=== PATIENT | female | born 1970 | race Caucasian/White ===

== ENCOUNTER → 2017-01-13 | Outpatient (CLI) | payer BC ==
[~2017-01-13] MED LIST: NORCO 5-325 TA1 EACH PO; PROTONIX20 MG PO
[2017-01-13 07:05] LABS: HEMOGLOBIN 14.5 gm/dl (12.3-15.3); RED BLOOD COUNT 4.88 M/UL (4.00-5.10)
[2017-01-13 07:26] LABS: BUN/CREATININE RATIO 10 (0-10)
== END ==
LOC: LAB 06:12
PROVIDERS: Internal Medicine Rheumatology
DX: M13.0 Polyarthritis, unspecified (principal); R79.9 Abnormal finding of blood chemistry, unspecified; M79.2 Neuralgia and neuritis, unspecified
CPT/HCPCS: 36415; 80053; 82607; 85027; 86140; 86200; 86431; 86671

== ENCOUNTER → 2020-10-08 | Outpatient (CLI) | payer BC, OTHER ==
[~2020-10-08] MED LIST changes: +CARAFATE1 GM PO; +MOBIC7.5 MG PO; +OMEPRAZOLE40 MG PO
== END ==
LOC: RAD 06:01
DX: M79.601 Pain in right arm (principal); R20.0 Anesthesia of skin; M48.02 Spinal stenosis, cervical region; M25.78 Osteophyte, vertebrae; M47.812 Spondylosis without myelopathy or radiculopathy, cervical region
CPT/HCPCS: 71046; 72050; 73030

== ENCOUNTER → 2021-02-02 | Outpatient (CLI) | payer BC, OTHER | LOC: RAD 12:03 | DX: R07.81 Pleurodynia (principal); S22.31XA Fracture of one rib, right side, initial encounter for closed fracture | CPT/HCPCS: 71111 ==

== ENCOUNTER → 2021-03-17 | Outpatient (CLI) | payer BC ==
[2021-03-17 06:58] LABS: HEMOGLOBIN 13.8 gm/dl (12.3-15.3); RED BLOOD COUNT 4.71 M/UL (4.00-5.10); WHITE BLOOD COUNT 7.3 K/UL (4.5-11.0)
[2021-03-17 07:20] LABS: BUN/CREATININE RATIO 15 (0-10)
[2021-03-18 08:20] LABS: VITAMIN D, 25-HYDROXY 25.6 ng/mL (30.0-100.0)
[2021-03-18 10:21] LABS: MICROALB/CREAT RATIO <9 (0-29)
== END ==
LOC: LAB 06:04
PROVIDERS: Nurse Practitioner Family
DX: Z00.00 Encounter for general adult medical examination without abnormal findings (principal); Z13.1 Encounter for screening for diabetes mellitus; R30.0 Dysuria; R73.9 Hyperglycemia, unspecified; J44.9 Chronic obstructive pulmonary disease, unspecified; R74.8 Abnormal levels of other serum enzymes; R53.83 Other fatigue; Z13.220 Encounter for screening for lipoid disorders; E53.8 Deficiency of other specified B group vitamins; R10.13 Epigastric pain; E78.5 Hyperlipidemia, unspecified; R11.0 Nausea
CPT/HCPCS: 80053; 80061; 81001; 82043; 82150; 82570; 82607; 83036; 83690; 84439; 84443; 85025; 86141

== ENCOUNTER → 2021-03-31 | Outpatient (CLI) | payer BC, OTHER | LOC: NM 06:28 | DX: R10.9 Unspecified abdominal pain (principal); R14.0 Abdominal distension (gaseous) | CPT/HCPCS: 78264; A9541 ==

== ENCOUNTER → 2021-04-13 | Outpatient (CLI) | payer BC, OTHER ==
[2021-04-14 17:08] LABS: ENDOMYSIAL ANTIBODY IGA Negative (Negative); IMMUNOGLOBULIN A, QN, SERUM 158 mg/dL (87-352); T-TRANSGLUTAMINASE (TTG) IGA <2 U/mL (0-3); T-TRANSGLUTAMINASE (TTG) IGG <2 U/mL (0-5)
[2021-04-16 09:14] LABS: D001-IGE D PTERONYSSINUS <0.10 kU/L (Class 0); D002-IGE D FARINAE <0.10 kU/L (Class 0); E001-IGE CAT DANDER <0.10 kU/L (Class 0); E005-IGE DOG DANDER <0.10 kU/L (Class 0); E072-IGE MOUSE URINE <0.10 kU/L (Class 0); F001-IGE EGG WHITE <0.10 kU/L (Class 0); F002-IGE MILK <0.10 kU/L (Class 0); F003-IGE CODFISH <0.10 kU/L (Class 0); F004-IGE WHEAT <0.10 kU/L (Class 0); F005-IGE RYE <0.10 kU/L (Class 0); F006-IGE BARLEY <0.10 kU/L (Class 0); F007-IGE OAT <0.10 kU/L (Class 0); F008-IGE CORN <0.10 kU/L (Class 0); F009-IGE RICE <0.10 kU/L (Class 0); F010-IGE SESAME SEED <0.10 kU/L (Class 0); F012-IGE GREEN PEA <0.10 kU/L (Class 0); F013-IGE PEANUT <0.10 kU/L (Class 0); F014-IGE SOYBEAN <0.10 kU/L (Class 0); F015-IGE WHITE BEAN <0.10 kU/L (Class 0); F017-IGE HAZELNUT (FILBERT) <0.10 kU/L (Class 0); F020-IGE ALMOND <0.10 kU/L (Class 0); F023-IGE CRAB <0.10 kU/L (Class 0); F024-IGE SHRIMP <0.10 kU/L (Class 0); F025-IGE TOMATO <0.10 kU/L (Class 0); F026-IGE PORK <0.10 kU/L (Class 0); F027-IGE BEEF <0.10 kU/L (Class 0); F031-IGE CARROT <0.10 kU/L (Class 0); F033-IGE ORANGE <0.10 kU/L (Class 0); F035-IGE POTATO, WHITE <0.10 kU/L (Class 0); F040-IGE TUNA <0.10 kU/L (Class 0); F041-IGE SALMON <0.10 kU/L (Class 0); F045-IGE YEAST <0.10 kU/L (Class 0); F047-IGE GARLIC <0.10 kU/L (Class 0); F083-IGE CHICKEN <0.10 kU/L (Class 0); F089-IGE MUSTARD <0.10 kU/L (Class 0); F093-IGE CHOCOLATE/CACAO <0.10 kU/L (Class 0); F202-IGE CASHEW NUT <0.10 kU/L (Class 0); F207-IGE CLAM <0.10 kU/L (Class 0); F215-IGE LETTUCE <0.10 kU/L (Class 0); F256-IGE WALNUT <0.10 kU/L (Class 0); F263-IGE GREEN PEPPERCORN <0.10 kU/L (Class 0); F338-IGE SCALLOP <0.10 kU/L (Class 0); G002-IGE BERMUDA GRASS <0.10 kU/L (Class 0); G006-IGE TIMOTHY GRASS <0.10 kU/L (Class 0); IMMUNOGLOBULIN E, TOTAL 16 IU/mL (6-495); M001-IGE PENICILLIUM CHRYSOGEN <0.10 kU/L (Class 0); M002-IGE CLADOSPORIUM HERBARUM <0.10 kU/L (Class 0); M003-IGE ASPERGILLUS FUMIGATUS <0.10 kU/L (Class 0); M006-IGE ALTERNARIA ALTERNATA <0.10 kU/L (Class 0); T001-IGE MAPLE/BOX ELDER <0.10 kU/L (Class 0); T003-IGE COMMON SILVER BIRCH <0.10 kU/L (Class 0); T006-IGE CEDAR, MOUNTAIN <0.10 kU/L (Class 0); T007-IGE OAK, WHITE <0.10 kU/L (Class 0); T010-IGE WALNUT <0.10 kU/L (Class 0); T011-IGE MAPLE LEAF SYCAMORE <0.10 kU/L (Class 0); T014-IGE COTTONWOOD <0.10 kU/L (Class 0); T015-IGE ASH, WHITE <0.10 kU/L (Class 0); T070-IGE WHITE MULBERRY <0.10 kU/L (Class 0); W001-IGE RAGWEED, SHORT <0.10 kU/L (Class 0); W018-IGE SHEEP SORREL <0.10 kU/L (Class 0)
== END ==
LOC: LAB 06:31
PROVIDERS: Nurse Practitioner Family
DX: R14.0 Abdominal distension (gaseous) (principal); R10.9 Unspecified abdominal pain; G89.29 Other chronic pain; K22.70 Barrett's esophagus without dysplasia
CPT/HCPCS: 82784; 82785

== ENCOUNTER → 2021-04-23 | Outpatient (CLI) | payer BC | LOC: CT 06:57 | DX: R07.9 Chest pain, unspecified (principal); Z87.891 Personal history of nicotine dependence; R91.8 Other nonspecific abnormal finding of lung field | CPT/HCPCS: 71260; Q9967 ==

== ENCOUNTER → 2021-07-09 | Outpatient (CLI) | payer BC ==
[2021-07-10 09:13] LABS: RHEUMATOID ARTHRITIS FACTOR <10.0 IU/mL (0.0-13.9)
== END ==
LOC: LAB 05:58
PROVIDERS: Nurse Practitioner Family
DX: D89.9 Disorder involving the immune mechanism, unspecified (principal); M25.50 Pain in unspecified joint; R76.8 Other specified abnormal immunological findings in serum
CPT/HCPCS: 36415; 83520; 85652; 86140; 86200; 86431

== ENCOUNTER → 2021-07-13 | Outpatient (CLI) | payer BC | LOC: MAMO 05:49 | DX: Z12.31 Encounter for screening mammogram for malignant neoplasm of breast (principal) | CPT/HCPCS: 77063; 77067 ==

== ENCOUNTER 2021-10-09 15:52 | Emergency (ER) | payer BC ==
[2021-10-09] MEDS ORDERED: PERCOCET 5-3251 EACH PO (17:52)
[2021-10-11] MEDS ORDERED: CYANOCOBAL1000 MCG/1 INJ (11:25)
[2021-10-11] MEDS ORDERED: PERCOCET 5-3251 EACH PO ×2 (11:25→15:39)
[2021-10-11] MEDS ORDERED: CELECOXIB200 MG PO (11:26)
[2021-10-11] MEDS ORDERED: CREON DR 36,001 EACH PO (11:27)
[2021-10-11] MEDS ORDERED: LIORESAL TAB 1010 MG PO (11:27)
== END 2021-10-09 18:12 | disposition home or self-care (01) ==
LOC: ER1 15:52
DX: S52.572A Other intraarticular fracture of lower end of left radius, initial encounter for closed fracture (principal); W00.0XXA Fall on same level due to ice and snow, initial encounter
CPT/HCPCS: 29125; 73110; 99283

== ENCOUNTER → 2021-10-11 | Day surgery (SDC) | payer BC, OTHER ==
[~2021-10-11] VITALS: Ht 175.3 cm; Wt 85.7 kg
[~2021-10-11] MED LIST changes: +CELECOXIB200 MG PO; +CREON DR 36,001 EACH PO; +CYANOCOBAL1000 MCG/1 INJ; +LIORESAL TAB 1010 MG PO; +PERCOCET 5-3251 EACH PO
[2021-10-11 11:17] LABS: HEMOGLOBIN 12.6 gm/dl (12.3-15.3); RED BLOOD COUNT 4.5 M/UL (4.00-5.10)
[2021-10-11 11:34] LABS: BUN/CREATININE RATIO 12 (0-10)
== END | disposition home or self-care (01) ==
LOC: OR 10:29
PROVIDERS: Orthopaedic Surgery
DX: S52.572A Other intraarticular fracture of lower end of left radius, initial encounter for closed fracture (principal); K21.9 Gastro-esophageal reflux disease without esophagitis; K31.84 Gastroparesis; X58.XXXA Exposure to other specified factors, initial encounter; Z87.891 Personal history of nicotine dependence; Z20.822 Contact with and (suspected) exposure to COVID-19; Z88.8 Allergy status to other drugs, medicaments and biological substances; Z79.1 Long term (current) use of non-steroidal anti-inflammatories (NSAID); Z79.899 Other long term (current) drug therapy; Z98.51 Tubal ligation status; Z90.49 Acquired absence of other specified parts of digestive tract
CPT/HCPCS: 71045; 73110; 76000; 80048; 85027; 93005; C1713; J0690; J1100; J2250; J2405; J2704; J2795; J3010; J7120; U0002